=== PATIENT | female | born 1985 ===

== ENCOUNTER 2017-01-02 15:42 | Outpatient (CLI) | payer OTHER ==
--- NOTE | 2017-01-02 16:35 | Mammography Report ---
BILATERAL DIGITAL DIAGNOSTIC MAMMOGRAM with CAD: 01/02/17 15:42:00 CLINICAL: Bilateral breast pain which comes and goes. She especially has pain with her menstrual cycle and she is not hurting today. COMPARISON:None. This is a baseline mammogram. FINDINGS: The breasts are heterogeneously dense, which may obscures small masses.No mass, architectural distortion or suspicious calcifications. IMPRESSION: Negative mammogram. BI-RADS CATEGORY: 1 - - Negative RECOMMENDATION: Clinical followup and routine mammographic screening based on ACS guidelines. ACR BI-RADS MAMMOGRAPHIC CODES: 0 = Needs additional imaging evaluation; 1 = Negative; 2 = Benign; 3 = Probably benign; 4 = Suspicious; 5 = Malignant; 6 = Known biopsy-proven malignancy COMMENT: 1. Dense breast tissue, i.e., adenosis, fibrocystic changes, etc., may obscure an underlying neoplasm. 2. Approximately 10% of cancers are not detected with mammography. 3. A negative mammography report should not delay biopsy if a clinically suspicious mass is present. COMMENT: Patient follow-up letters are generated by our [employer] application.
== END 2017-01-02 15:43 | disposition home or self-care (01) ==
LOC: SPVWC 15:42
PROVIDERS: ATTEND Nurse Practitioner
DX: N64.4 Mastodynia (principal)
CPT/HCPCS: 77066; G0204